=== PATIENT | male | born 1990 | race Caucasian/White ===

== ENCOUNTER 2016-12-31 10:25 | Emergency (ER) | payer OTHER ==
[~2016-12-31] VITALS: Ht 175.3 cm; Wt 74.8 kg
[2016-12-31] MEDS ORDERED: BACTRIM DS TAB1 EACH PO (12:04)
[2016-12-31] MEDS ORDERED: MOBIC7.5 MG PO (12:06)
[2016-12-31 12:08] VITALS: BP 130/72
[2016-12-31] MEDS ORDERED: OXYCODONE HCL 55 MG PO (12:18)
== END 2016-12-31 12:23 | disposition home or self-care (01) ==
LOC: ER 10:25
DX: S71.112A Laceration without foreign body, left thigh, initial encounter (principal); F17.210 Nicotine dependence, cigarettes, uncomplicated; F10.99 Alcohol use, unspecified with unspecified alcohol-induced disorder; Z88.0 Allergy status to penicillin; W29.3XXA Contact with powered garden and outdoor hand tools and machinery, initial encounter; Y93.89 Activity, other specified; Y92.89 Other specified places as the place of occurrence of the external cause; Y99.8 Other external cause status